=== PATIENT | male | born 1945 | race Caucasian/White ===

== ENCOUNTER → 2017-05-16 | Outpatient (CLI) | payer MEDICARE ==
[~2017-05-16] MED LIST: ASA PO; CARVEDILOL25 MG; SIMVASTATIN80 MG; WARFARIN SOD5 MG; Zestril,Prinivil5 MG
[2017-05-16 08:17] LABS: BASO % 0.4 % (0.0-1.0); EOS # 0.1 10*3/uL (0.0-0.4); EOS % 0.9 % (1.0-4.0); HEMATOCRIT 28.8 % (42.0-52.0); LYMPH # 1.7 10*3/uL (1.3-4.4); LYMPH % 24.5 % (27.0-41.0); MEAN CELL VOLUME 108.3 fl (80.0-94.0); MEAN CORPUSCULAR HGB 37.6 pg (27.0-31.0); MEAN CORPUSCULAR HGB CONC 34.7 g/dl (33.0-37.0); MEAN PLATELET VOLUME 10.2 fl (9.6-12.3); MONO # 0.8 10*3/uL (0.1-1.0); MONO % 11.5 % (3.0-9.0); NEUT # 4.3 10*3/uL (2.3-7.9); NEUT % 62.4 % (47.0-73.0); PLATELET COUNT AUTOMATED 189 10*3/uL (130-400); RED BLOOD COUNT 2.66 10*6/uL (4.50-5.90); RED CELL DISTRI WIDTH 13.9 % (0-14.5); WHITE BLOOD COUNT 6.8 10*3/uL (4.8-10.8)
[2017-05-16 08:46] LABS: ALBUMIN 3.8 gm/dl (3.1-4.5); BILIRUBIN, DIRECT 0.2 mg/dL (0.0-0.2); BILIRUBIN, TOTAL 0.7 mg/dl (0.2-1.0); BUN 23 mg/dl (7-24); CARBON DIOXIDE 25 mmol/L (21-32); CHLORIDE 104 mmol/L (98-107); CHOLESTEROL 140 mg/dL (<200); EST GLOM FILT AFRICAN AMERICAN > 60 ml/min; GLUCOSE 95 mg/dL (65-99); HDL CHOLESTEROL 70 mg/dl (40-60); LDL CHOLESTEROL 60 mg/dL (9-159); POTASSIUM 4.9 mmol/L (3.5-5.1); SGOT/AST 11 IU/L (3-35); SGPT/ALT 16 U/L (12-78); SODIUM 137 mmol/L (136-145); TOTAL PROTEIN 6.9 gm/dL (6.4-8.2); TRIGLYCERIDES 48 mg/dl (<150); VLDL CHOLESTEROL 10 mg/dL (6-40)
[2017-05-16 08:53] LABS: ALKALINE PHOSPHATASE 44 U/L (45-117); FREE T4 0.99 ng/dl (0.76-1.46); THYROID STIM HORMONE (HS) 0.935 uIU/ml (0.358-4.75)
[2017-05-16 09:01] LABS: HEMOGLOBIN A1c 5.1 % (4.8-5.6)
[2017-05-16 09:12] LABS: EOSINOPHIL # 0.1 10*3/uL (0-0.4); EOSINOPHILS 1 % (1-4); LYMPHOCYTE # 1.7 10*3/uL (1.3-4.4); MONOCYTE # 0.4 10*3/uL (0.1-1.0); NEUTROPHIL # 4.6 10*3/uL (2.3-7.9); NEUTROPHILS 68 % (47-73); PLATELET SUFFICIENCY NORMAL (NORMAL); TOTAL CELLS COUNTED 100 #CELLS
== END | disposition home or self-care (01) ==
LOC: LAB 07:37
PROVIDERS: Internal Medicine
DX: Z12.5 Encounter for screening for malignant neoplasm of prostate (principal); I12.9 Hypertensive chronic kidney disease with stage 1 through stage 4 chronic kidney disease, or unspecified chronic kidney disease; N18.2 Chronic kidney disease, stage 2 (mild); E55.9 Vitamin D deficiency, unspecified; D50.9 Iron deficiency anemia, unspecified; R73.02 Impaired glucose tolerance (oral); E87.5 Hyperkalemia; E78.4 Other hyperlipidemia; R35.1 Nocturia; R41.3 Other amnesia; Z79.1 Long term (current) use of non-steroidal anti-inflammatories (NSAID)

== ENCOUNTER → 2017-09-28 | Outpatient (CLI) | payer MEDICARE ==
[2017-09-28 07:53] LABS: BASO % 0.4 % (0.0-1.0); EOS # 0.1 10*3/uL (0.0-0.4); EOS % 1.2 % (1.0-4.0); HEMATOCRIT 33.3 % (42.0-52.0); HEMOGLOBIN 11.6 g/dl (14.0-18.0); LYMPH # 2.1 10*3/uL (1.3-4.4); LYMPH % 31.6 % (27.0-41.0); MEAN CELL VOLUME 105.4 fl (80.0-94.0); MEAN CORPUSCULAR HGB 36.7 pg (27.0-31.0); MEAN CORPUSCULAR HGB CONC 34.8 g/dl (33.0-37.0); MEAN PLATELET VOLUME 9.6 fl (9.6-12.3); MONO # 0.8 10*3/uL (0.1-1.0); MONO % 11.4 % (3.0-9.0); NEUT # 3.7 10*3/uL (2.3-7.9); NEUT % 55.1 % (47.0-73.0); NUCLEATED RED BLOOD CELL 0.3 % (0.0-0.0); PLATELET COUNT AUTOMATED 196 10*3/uL (130-400); RED BLOOD COUNT 3.16 10*6/uL (4.50-5.90); RED CELL DISTRI WIDTH 13.7 % (0-14.5); WHITE BLOOD COUNT 6.7 10*3/uL (4.8-10.8)
[2017-09-28 08:26] LABS: ALBUMIN 3.9 gm/dl (3.1-4.5); BUN 21 mg/dl (7-24); CHLORIDE 105 mmol/L (98-107); POTASSIUM 4.3 mmol/L (3.5-5.1); SODIUM 140 mmol/L (136-145)
[2017-09-28 08:31] LABS: ALKALINE PHOSPHATASE 56 U/L (45-117); BILIRUBIN, DIRECT 0.3 mg/dL (0.0-0.2); CHOLESTEROL 147 mg/dL (<200); CREATININE 1.31 mg/dL (0.70-1.30); HDL CHOLESTEROL 75 mg/dl (40-60); LDL CHOLESTEROL 60 mg/dL (9-159); SGOT/AST 15 IU/L (3-35); SGPT/ALT 20 U/L (12-78); TOTAL PROTEIN 7.2 gm/dL (6.4-8.2); TRIGLYCERIDES 58 mg/dl (<150); VLDL CHOLESTEROL 12 mg/dL (6-40)
[2017-09-28 09:59] LABS: VITAMIN D, 25-HYDROXY 60.2 ng/mL (30-100)
== END | disposition home or self-care (01) ==
LOC: LAB 07:32
PROVIDERS: Internal Medicine
DX: I12.9 Hypertensive chronic kidney disease with stage 1 through stage 4 chronic kidney disease, or unspecified chronic kidney disease (principal); N18.3 Chronic kidney disease, stage 3 (moderate); R73.02 Impaired glucose tolerance (oral); E78.4 Other hyperlipidemia; M10.9 Gout, unspecified; D50.9 Iron deficiency anemia, unspecified; E55.9 Vitamin D deficiency, unspecified

== ENCOUNTER → 2018-04-04 | Outpatient (CLI) | payer MEDICARE ==
[2018-04-04 09:25] LABS: HEMATOCRIT 30.8 % (42.0-52.0); HEMOGLOBIN 10.4 g/dl (14.0-18.0); MEAN CELL VOLUME 109.2 fl (80.0-94.0); MEAN CORPUSCULAR HGB 36.9 pg (27.0-31.0); MEAN CORPUSCULAR HGB CONC 33.8 g/dl (33.0-37.0); MEAN PLATELET VOLUME 10.4 fl (9.6-12.3); NUCLEATED RED BLOOD CELL 0.3 % (0.0-0.0); PLATELET COUNT AUTOMATED 194 10*3/uL (130-400); RED BLOOD COUNT 2.82 10*6/uL (4.50-5.90); RED CELL DISTRI WIDTH 13.9 % (0-14.5); WHITE BLOOD COUNT 6.1 10*3/uL (4.8-10.8)
[2018-04-04 09:41] LABS: ALKALINE PHOSPHATASE 49 U/L (45-117); BILIRUBIN, DIRECT 0.2 mg/dL (0.0-0.2); BUN 24 mg/dl (7-24); CHLORIDE 107 mmol/L (98-107); CHOLESTEROL 151 mg/dL (<200); HDL CHOLESTEROL 73 mg/dl (40-60); LDL CHOLESTEROL 70 mg/dL (9-159); POTASSIUM 5.2 mmol/L (3.5-5.1); SGOT/AST 12 IU/L (3-35); SGPT/ALT 21 U/L (12-78); SODIUM 139 mmol/L (136-145); TRIGLYCERIDES 39 mg/dl (<150); VLDL CHOLESTEROL 8 mg/dL (6-40)
[2018-04-04 11:26] LABS: PLATELET SUFFICIENCY NORMAL (NORMAL); TOTAL CELLS COUNTED 100 #CELLS
== END | disposition home or self-care (01) ==
LOC: LAB 08:34
PROVIDERS: Internal Medicine Cardiovascular Disease
DX: I12.9 Hypertensive chronic kidney disease with stage 1 through stage 4 chronic kidney disease, or unspecified chronic kidney disease (principal); N18.2 Chronic kidney disease, stage 2 (mild); I25.10 Atherosclerotic heart disease of native coronary artery without angina pectoris; D50.9 Iron deficiency anemia, unspecified; E55.9 Vitamin D deficiency, unspecified; R73.02 Impaired glucose tolerance (oral)

== ENCOUNTER 2019-09-15 18:03 | Inpatient (IN) | payer MEDICARE, OTHER ==
[~2019-09-15] VITALS: Ht 160 cm; Wt 60.8 kg
[2019-09-15 18:17] VITALS: BP 137/79
[2019-09-15 18:38] LABS: HEMATOCRIT 27.2 % (42.0-52.0); HEMOGLOBIN 9.2 g/dl (14.0-18.0); MEAN CELL VOLUME 117.2 fl (80.0-94.0); MEAN CORPUSCULAR HGB 39.7 pg (27.0-31.0); MEAN CORPUSCULAR HGB CONC 33.8 g/dl (33.0-37.0); MEAN PLATELET VOLUME 9.7 fl (9.6-12.3); PLATELET COUNT AUTOMATED 159 10*3/uL (130-400); RED BLOOD COUNT 2.32 10*6/uL (4.50-5.90); RED CELL DISTRI WIDTH 14.6 % (0-14.5); WHITE BLOOD COUNT 6.3 10*3/uL (4.8-10.8)
[2019-09-15 18:49] LABS: ACT PARTIAL THROMBO TIME 23.8 SECONDS (20.0-32.1)
[2019-09-15 18:55] LABS: ALBUMIN 3.6 gm/dl (3.1-4.5); ALKALINE PHOSPHATASE 85 U/L (45-117); BUN 20 mg/dl (7-24); CHLORIDE 104 mmol/L (98-107); CREATININE 1.28 mg/dL (0.70-1.30); LIPASE 143 U/L (73-393); POTASSIUM 4.2 mmol/L (3.5-5.1); SGOT/AST 13 IU/L (3-35); SGPT/ALT 27 U/L (12-78); SODIUM 135 mmol/L (136-145); TOTAL PROTEIN 6.7 gm/dL (6.4-8.2)
[2019-09-15 19:07] LABS: TROPONIN I < 0.015 ng/ml (<0.045)
--- NOTE | 2019-09-15 19:07 | NUR ---
[facility]
--- NOTE | 2019-09-15 19:14 | NUR ---
REPORT TO RADHA MATOS.
[2019-09-15 19:20] LABS: BILIRUBIN NEGATIVE (NEGATIVE); BLOOD NEGATIVE (NEGATIVE); CLARITY CLEAR (CLEAR); COLOR YELLOW (YELLOW); GLUCOSE NEGATIVE (NEGATIVE); KETONE NEGATIVE (NEGATIVE); LEUKO ESTERASE NEGATIVE (NEGATIVE); NITRITE NEGATIVE (NEGATIVE); SPECIFIC GRAVITY 1.015 (1.005-1.030); UROBILINOGEN 0.2 E.U./dl (0.2-1.0)
[2019-09-15 19:28] LABS: PLATELET SUFFICIENCY NORMAL (NORMAL); TOTAL CELLS COUNTED 100 #CELLS
[2019-09-15 19:29] LABS: BURR CELLS FEW
[2019-09-15 19:31] LABS: RBC 0-2 rbc/hpf (0-2)
[2019-09-15 19:35] VITALS: BP 133/74
[2019-09-15 20:50] VITALS: BP 139/80
--- NOTE | 2019-09-15 20:50 | NUR ---
A 74, admitted to , under the services of ART Johnston DO with a diagnosis of SYNCOPE AND COLLAPSE. Chief complaint is FALL. Patient arrived via bed from ER. Monitor applied. Initial assessment completed. Vital signs taken and recorded. ART JOHNSTON DO notified of admission to the unit. Orders received. See assessment for past medical history, medications and allergies. Patient and/or family oriented to unit. [address] visitation policy reviewed. Clothing/patient valuable form completed. SHARA DALE
--- NOTE | 2019-09-15 22:15 | NUR ---
DR. ASHRAF NOTIFIED OF BRINGING MED LIST IN TOMORROW. ALSO NOTIFIED OF NEED FOR WOUND ORDERS.
--- NOTE | 2019-09-15 22:39 | NUR ---
PT REFUSING AQUAPHOR AT THIS TIME.
[2019-09-16] VITALS: BP 132/68
--- NOTE | 2019-09-16 02:17 | NUR ---
Patient resting quietly with no c/o discomfort. Respirations easy and regular. Vital signs stable. No overt distress. JULIANO MANN
[2019-09-16 06:27] LABS: BUN 19 mg/dl (7-24); CHLORIDE 106 mmol/L (98-107); CHOLESTEROL 126 mg/dL (<200); CREATININE 1.32 mg/dL (0.70-1.30); FREE T4 1.07 ng/dl (0.76-1.46); HDL CHOLESTEROL 68 mg/dl (40-60); LDL CHOLESTEROL 47 mg/dL (9-159); PHOSPHOROUS 3.8 mg/dL (2.5-4.9); SODIUM 142 mmol/L (136-145); TRIGLYCERIDES 56 mg/dl (<150); VLDL CHOLESTEROL 11 mg/dL (6-40)
[2019-09-16 06:31] LABS: HEMATOCRIT 27.3 % (42.0-52.0); HEMOGLOBIN 9.4 g/dl (14.0-18.0); MEAN CORPUSCULAR HGB 39.5 pg (27.0-31.0); MEAN CORPUSCULAR HGB CONC 34.4 g/dl (33.0-37.0); MEAN PLATELET VOLUME 10.3 fl (9.6-12.3); PLATELET COUNT AUTOMATED 179 10*3/uL (130-400); RED BLOOD COUNT 2.38 10*6/uL (4.50-5.90); RED CELL DISTRI WIDTH 14.3 % (0-14.5); WHITE BLOOD COUNT 6.3 10*3/uL (4.8-10.8)
[2019-09-16 06:32] LABS: MEAN CELL VOLUME 114.7 fl (80.0-94.0)
[2019-09-16 06:52] LABS: BASOPHILS 1 % (0-1); TOTAL CELLS COUNTED 100 #CELLS
[2019-09-16 06:53] LABS: PLATELET SUFFICIENCY NORMAL (NORMAL)
--- NOTE | 2019-09-16 07:07 | NUR ---
ISMAEL ORELLANA [id number] Please refer to the physician's history and physical for past medical history, comorbid conditions, and allergies. Diagnosis: SYNCOPE AND COLLAPSE Mckay Score: 19,LOW OR NO RISK WOUND DESCRIPTIONS: INTACT SCABS NOTED TO PATIENT'S NOSE, CHIN AND LIP. NO DRAINAGE NOTED AT TIME OF ASSESSMENT. ERRYTHEMA NOTED TO PERIWOUND TO NOSE, CHIN AND LIP. EDEMA NOTED TO PATIENT'S LIP. PATIENT STATES THAT HE FELL 09/15 AROUND 1800. PATIENT AGREED TO AQUAPHOR TO NOSE, CHIN AND LIP. Surface the patient is resting on: Position Pro SKIN PREVENTION RECOMMENDATION: 1. Pressure redistribution support surface as appropriate 2. Elevate heels 3. Remove boots/TEDS every shift and reapply 4. Head of bed 30 degrees as tolerated 5. Assess nutrition and hydration 6. Manage moisture 7. Avoid the use of containment devices while in bed 8. Use absorptive products on surfaces limit layers of linens on bed 9. Turn and reposition every 1-2 hours in bed and every 1 hour in chair as tolerated 10. Weight shifts every 15 minutes while up in chair 11. Offloading with pillows or device to keep heels elevated off bed 12. Monitor skin at least every shift 13. Inspect under medical devices twice a day WOUND TREATMENT RECOMMENDATIONS: AQUAPHOR TO NOSE, CHIN AND LIP DAILY AND PRN.
[2019-09-16 08:00] VITALS: BP 127/77; BP 130/62
--- NOTE | 2019-09-16 08:30 | NUR ---
PATIENT SITTING UP IN BED, EATING BREAKFAST. NO DISTRESS NOTED. RESPIRATIONS EASY, REGULAR ON RA. DENIES ANY SOB. DENIES ANY PAIN/DISCOMFORT AT THIS TIME. WILL CONTINUE TO MONITOR. VSS.
--- NOTE | 2019-09-16 08:55 | NUR ---
Mckenzie JANE notified of wound care recommendations.
--- NOTE | 2019-09-16 09:14 | NUR ---
'S OFFICE CALLED AT THIS TIME REGARDING CONSULT.
--- NOTE | 2019-09-16 09:17 | NUR ---
[employer] CALLED AT THIS TIME REGARDING PACER INTERROGATION.
--- NOTE | 2019-09-16 09:33 | NUR ---
REP FROM [employer] CALLED AND WILL BE IN LATER ON TO SEE THE PATIENT.
--- NOTE | 2019-09-16 10:07 | NUR ---
Nutritional Support Services Note: Discussing diet with pts . Diet copy given. Wounds noted to face secondary to fall. Encouraged increased calorie and protein to promote healing. Discussed foods to avoid. Encouraged compliance and follow up if needed. Lupe Perry Rdn Ld
--- NOTE | 2019-09-16 10:23 | NUR ---
PHYSICAL THERAPY Charoal completed pt low level of complexity full report to follow recomend home with /HH as long as cont to progress well with ambulation. PT to work on transfser/ambulation/safety monitor for c/o dizziness with activity. Tg Pena PT
[2019-09-16] MEDS ORDERED: ALLOPURINOL100 MG PO (10:32)
[2019-09-16] MEDS ORDERED: FUROSEMIDE40 MG PO (10:32)
--- NOTE | 2019-09-16 10:32 | NUR ---
MED REC UPDATED PER POLICY.
--- NOTE | 2019-09-16 11:18 | NUR ---
Patient not available for Occupational Therapy evaluation as he is with his doctor. Edwige Marquez OTR/l
--- NOTE | 2019-09-16 11:27 | NUR ---
IN TO SEE PATIENT REGARDING CONSULT.
--- NOTE | 2019-09-16 11:35 | NUR ---
Occupational Therapy evaluation completed on 4 with full eval to follow. Precautions include "passing out" at home and hospitalized with falls x2 in 2 months, low complexity level 53703 , IV UE, pacemaker. Recommend return home w/ and no further OT at this time. Thank you. Edwige Marquez OTR/l
--- NOTE | 2019-09-16 11:35 | NUR ---
Occupational Therapy evaluation completed on 4 with full eval to follow. Precautions include pacemaker,h/o falls w/ syncope, low complexity level 61838. Recommend no further OT at this time and return home w/ upon d/c. Thank you. Preeti Marquez OTR/l
[2019-09-16 12:00] VITALS: BP 118/44
--- NOTE | 2019-09-16 12:41 | NUR ---
Guest Relations Receptionist in to talk to patient. Patient states lives at HOME with . There are NO steps in the home. Physician: GINA CONNOLLY Pharmacy: [facility] services: NONE Patient's level of ADLs: INDEPENDENT Patient has working utilities: YES DME: NONE Follow-up physician's appointment after d/c: WILL BE MADE BY HOSPITALIST NURSE DIRECTOR ON DISCHARGE Does patient want to access PORTAL?: NO Discharge plan PT LIVES AT HOME WITH HIS AND IS INDEPENDENT IN CARE. IS AT BEDSIDE AND THE PLAN IS FOR PT TO RETURN HOME WHEN MEDICALLY STABLE WITH NO NEEDS. WILL CONTINUE TO FOLLOW. WILL HAVE A RIDE HOME ON DISCHARGE.. OLLIE FLOWER
--- NOTE | 2019-09-16 13:15 | NUR ---
PHYSICAL THERAPY Patient seen this pm 1;1 for therapy visit and was resting supine in bed upon therapist arrival. Patient identified by name / and was very pleasant this afternoon, voicing no new c/o's at this time. Patient was Supervision for all therapy activites this session with resting HR 73 bpm. Patient ambulates > 250' x 1, demonstrating smooth, even stride with good B arm swing and no LOB. Patient completed several standing balance ex including eyes open / closed, backward gait without LOB and tolerated 8-10 seconds single leg stance without c/o. Patient returned to supine in bed and remained with call light, tray table and telephone. Will continue per POC as tolerated, total treatment time 18 minutes. Gómez Tejada, BROODMARE FOREMAN
--- NOTE | 2019-09-16 14:23 | NUR ---
PATIENT TAKEN OFF FLOOR FOR SCHEDULED U/S.
--- NOTE | 2019-09-16 15:53 | NUR ---
THIS NURSE UNABLE TO REACH RECYCLING PROGRAM MANAGER JOURNAL ENTRY AUDIT CLERK. CALLED REGARDING CAROTID DOPPLER RESULTS. INNA STONE NOTIFIED.
--- NOTE | 2019-09-16 15:54 | NUR ---
CALLED AND UPDATED ON PACER INTERROGATION. NEW ORDERS RECEIVED.
[2019-09-16 16:00] VITALS: BP 138/72
--- NOTE | 2019-09-16 17:10 | NUR ---
FAMILY AT BEDSIDE AND UPDATED ON PLAN OF CARE. PT RESTING. NO DISTRESS.
--- NOTE | 2019-09-16 17:10 | NUR ---
PT RESTING QUIETLY IN BED. NO DISTRESS NOTED. FAMILY AT BEDSIDE AND UPDATED ON PLAN OF CARE. WILL CONTINUE TO MONITOR. CALL LIGHT WITHIN REACH.
--- NOTE | 2019-09-16 19:45 | NUR ---
PATIENT IS RESTING IN BED WITH EASY AND REGULAR RESPERS ON ROOM AIR. ASSESSMENT IS COMPLETE WITH NO S/S OF DISTRESS NOTED AT THIS TIME. BED IS LOW, LOCKED, ALARMED, AND CALL LIGHT IS WITHIN REACH. WILL CONTINUE TO MONITOR, SEE SHIFT ASSESSMENT.
[2019-09-16 20:00] VITALS: BP 117/63
[2019-09-17] VITALS: BP 113/54
--- NOTE | 2019-09-17 00:30 | NUR ---
PATIENT SLEEPING WITH EASY AND REGULAR RESPERS ON ROOM AIR. CALL LIGHT IS WITHIN REACH.
--- NOTE | 2019-09-17 04:14 | NUR ---
Recommend follow up for wound care in outpatient setting patient refused at this time.
--- NOTE | 2019-09-17 05:32 | NUR ---
24 HR. CHART CHECK COMPLETE.
[2019-09-17 08:00] VITALS: BP 114/55
--- NOTE | 2019-09-17 10:45 | NUR ---
PHYSICAL THERAPY Patient was out of his room for a medical procedure this am when approached multiple times and is still unavailable at this time. Will continue per POC as able. Gómez Tejada, REPLANTING MACHINE CREWMAN
--- NOTE | 2019-09-17 10:52 | NUR ---
PT HAVING STRESS TEST TODAY. WILL RETURN HOME WITH WHEN MEDICALLY STABLE. WILL CONTINUE TO FOLLOW.
--- NOTE | 2019-09-17 10:55 | NUR ---
INFORMED CONSENT OBTAINED FOR WALKING LEXISCAN NUCLEAR STRESS TEST WITH DR. OSBORN. RESING EKG NSR WITH A SUPINE HR OF 79 WITH BP OF 110/54 AND HR OF 65 WITH BP OF 110/54 IN STANDING POSITION. PT COMPLETED A 2:00 WALKING LEXISCAN PROTOCOL WITH WALKING ON TREADMILL AT 1.7 MPH AND NO GRADE. RECEIVED LEXISCAN 0.4 MG IV OVER 10 SECONDS WHILE WALKING. HAD NO CHEST PAIN OR ANY EKG CHANGES. DID C/O FEELING OF SHORTNESS OF BREATH THAT WAS RELIEVED IN RECOVERY. HAD A PEAK HR OF 103 WITH BP OF 96/30. LAST RECOVERY HR OF 94 WITH BP OF 108/48. AWAITING SCANNING IN STABLE CONDITION.
--- NOTE | 2019-09-17 11:03 | NUR ---
PATIENT OFF FLOOR FOR SCHEDULED STRESS TEST.
[2019-09-17] MEDS ORDERED: ALDACTONE25 MG PO (11:37)
[2019-09-17] MEDS ORDERED: ATORVASTATIN CA80 M1 PO (11:37)
[2019-09-17 12:00] VITALS: BP 123/59
--- NOTE | 2019-09-17 14:41 | NUR ---
PHYSICAL THERAPY CO-SIGN I approve of the Physical Therapy notes written above Tg Pena PT
--- NOTE | 2019-09-17 15:00 | NUR ---
PT REFUSED DISCHARGE PHOTOS.
--- NOTE | 2019-09-17 15:00 | NUR ---
Discharge instructions reviewed with patient/family. Patient receptive and verbalizes understanding. Follow-up care arranged. Written instructions given to patient/family. ARELY MCCLURE.
== END 2019-09-17 15:00 | disposition home or self-care (01) | DRG 312 ==
LOC: ED 18:03 → 4E 19:27 → EDHOLD 19:27 → 4E 20:17
PROVIDERS: Emergency Medicine; Internal Medicine; ADMIT Internal Medicine
PROC: 4A02XM4 Measurement of Cardiac Total Activity, External Approach (ICD-10-PCS; principal; 2019-09-17)
PROC: 3E073KZ Introduction of Other Diagnostic Substance into Coronary Artery, Percutaneous Approach (ICD-10-PCS; principal; 2019-09-17)
DX: R55 Syncope and collapse (principal); I50.22 Chronic systolic (congestive) heart failure; I13.0 Hypertensive heart and chronic kidney disease with heart failure and stage 1 through stage 4 chronic kidney disease, or unspecified chronic kidney disease; I65.22 Occlusion and stenosis of left carotid artery; S00.81XA Abrasion of other part of head, initial encounter; D53.9 Nutritional anemia, unspecified; I10 Essential (primary) hypertension; I25.10 Atherosclerotic heart disease of native coronary artery without angina pectoris; N18.3 Chronic kidney disease, stage 3 (moderate); I25.5 Ischemic cardiomyopathy; I34.0 Nonrheumatic mitral (valve) insufficiency; E78.5 Hyperlipidemia, unspecified; E78.2 Mixed hyperlipidemia; M10.9 Gout, unspecified; Z79.82 Long term (current) use of aspirin; Z95.0 Presence of cardiac pacemaker; Z79.899 Other long term (current) drug therapy; Z80.0 Family history of malignant neoplasm of digestive organs; Z82.49 Family history of ischemic heart disease and other diseases of the circulatory system

== ENCOUNTER → 2022-10-12 | Outpatient (CLI) | payer MEDICARE, OTHER ==
[~2022-10-12] MED LIST changes: +ALDACTONE25 MG PO; +ALLOPURINOL100 MG PO; +ATORVASTATIN CA80 M1 PO; +FUROSEMIDE40 MG PO
[2022-10-12 14:27] LABS: HEMATOCRIT 33.6 % (42.0-52.0); MEAN CELL VOLUME 117.1 fl (80.0-94.0); MEAN CORPUSCULAR HGB 39.7 pg (27.0-31.0); MEAN CORPUSCULAR HGB CONC 33.9 g/dl (33.0-37.0); MEAN PLATELET VOLUME 9.2 fl (9.6-12.3); PLATELET COUNT AUTOMATED 182 10*3/uL (130-400); RED BLOOD COUNT 2.87 10*6/uL (4.50-5.90); RED CELL DISTRI WIDTH 16.5 % (0-14.5); WHITE BLOOD COUNT 4.5 10*3/uL (4.8-10.8)
[2022-10-12 14:36] LABS: INTERNATIONAL NORM RATIO 1.1 (2.0-3.5)
[2022-10-12 14:39] LABS: MANUAL DIFF REFLEX YES
[2022-10-12 14:44] LABS: POTASSIUM 4.7 mmol/L (3.4-5.1)
[2022-10-12 16:11] LABS: ATYPICAL LYMPHS 1 % (0-0); BASOPHILS 2 % (0-1); PLATELET SUFFICIENCY NORMAL (NORMAL); TOTAL CELLS COUNTED 100 #CELLS
[2022-10-12 16:12] LABS: OVALOCYTES FEW
[2022-10-12 16:13] LABS: ACANTHOCYTES FEW
== END | disposition home or self-care (01) ==
LOC: LAB 14:06
PROVIDERS: ATTEND Internal Medicine Interventional Cardiology
DX: I11.0 Hypertensive heart disease with heart failure (principal); I50.23 Acute on chronic systolic (congestive) heart failure; I25.5 Ischemic cardiomyopathy; I25.10 Atherosclerotic heart disease of native coronary artery without angina pectoris; I34.0 Nonrheumatic mitral (valve) insufficiency; E78.2 Mixed hyperlipidemia

== ENCOUNTER 2024-10-12 16:25 | Emergency (ER) | payer MEDICARE, OTHER ==
[~2024-10-12] VITALS: Ht 160 cm; Wt 54.0 kg
[2024-10-12] MEDS ORDERED: LISINOPRIL10 M1 PO (16:43)
[2024-10-12] MEDS ORDERED: METOPROLOL SUC100 M1 PO (16:43)
[2024-10-12] MEDS ORDERED: Ondansetron Hydrochloride 4 MG/2 ML VIAL IV ONE (16:55)
[2024-10-12] MEDS ORDERED: SODIUM CHLORIDE 0.9% 1,000 ML IV ONE (16:55)
[2024-10-12 17:27] LABS: HEMATOCRIT 35.3 % (42.0-52.0); MEAN CELL VOLUME 122.1 fl (80.0-94.0); MEAN CORPUSCULAR HGB 39.8 pg (27.0-31.0); MEAN CORPUSCULAR HGB CONC 32.6 g/dl (33.0-37.0); MEAN PLATELET VOLUME 9.7 fl (9.6-12.3); PLATELET COUNT AUTOMATED 217 10*3/uL (130-400); RED BLOOD COUNT 2.89 10*6/uL (4.50-5.90); RED CELL DISTRI WIDTH 19.4 % (0-14.5); WHITE BLOOD COUNT 13.7 10*3/uL (4.8-10.8)
[2024-10-12 17:48] LABS: MANUAL DIFF REFLEX YES
[2024-10-12 17:51] LABS: POTASSIUM 4.5 mmol/L (3.4-5.1); TOTAL CELLS COUNTED 100 #CELLS; TOTAL PROTEIN 6.9 gm/dL (6.0-8.0)
[2024-10-12 17:52] LABS: PLATELET SUFFICIENCY NORMAL (NORMAL)
[2024-10-12 20:00] VITALS: BP 140/73
[2024-10-12] MEDS ORDERED: Ondansetron4 MG PO (20:30)
== END 2024-10-12 20:44 | disposition home or self-care (01) ==
LOC: ED 16:25
PROVIDERS: Physician Assistant Medical
DX: K52.9 Noninfective gastroenteritis and colitis, unspecified (principal); Z20.822 Contact with and (suspected) exposure to COVID-19; I11.0 Hypertensive heart disease with heart failure; I25.10 Atherosclerotic heart disease of native coronary artery without angina pectoris; I25.2 Old myocardial infarction; I50.9 Heart failure, unspecified; E78.5 Hyperlipidemia, unspecified; D63.1 Anemia in chronic kidney disease; M10.9 Gout, unspecified; Z95.5 Presence of coronary angioplasty implant and graft

== ENCOUNTER 2025-01-19 05:27 | Emergency (ER) | payer MEDICARE, OTHER ==
[~2025-01-19] VITALS: Ht 167.6 cm; Wt 63.5 kg
[~2025-01-19 05:27] MED LIST changes: +LISINOPRIL10 M1 PO; +METOPROLOL SUC100 M1 PO; +Ondansetron4 MG PO
[2025-01-19 05:34] VITALS: BP 142/51
[2025-01-19] MEDS ORDERED: Ondansetron Hydrochloride 4 MG/2 ML VIAL IV ONE (05:40)
[2025-01-19] MEDS ORDERED: SODIUM CHLORIDE 0.9% 1,000 ML IV ONE (05:40)
[2025-01-19] MEDS ORDERED: MORPHINE Sulfate 2 MG/ML SYR IV ONE (05:40)
[2025-01-19] MEDS ORDERED: IOHEXOL 300 MG/ML 100 ML VIAL IV ONE (05:50)
[2025-01-19 06:13] LABS: HEMATOCRIT 41.3 % (42.0-52.0); MEAN CELL VOLUME 117.3 fl (80.0-94.0); MEAN CORPUSCULAR HGB 39.5 pg (27.0-31.0); MEAN CORPUSCULAR HGB CONC 33.7 g/dl (33.0-37.0); MEAN PLATELET VOLUME 10.1 fl (9.6-12.3); NUCLEATED RED BLOOD CELL 0.1 10*3/uL (0.0-0.0); NUCLEATED RED BLOOD CELL 0.6 % (0.0-0.0); PLATELET COUNT AUTOMATED 255 10*3/uL (130-400); RED BLOOD COUNT 3.52 10*6/uL (4.50-5.90); RED CELL DISTRI WIDTH 18.6 % (0-14.5); WHITE BLOOD COUNT 11.4 10*3/uL (4.8-10.8)
[2025-01-19 06:23] LABS: MANUAL DIFF REFLEX YES
[2025-01-19 06:39] LABS: ALKALINE PHOSPHATASE 353 U/L (46-116); BUN 20 mg/dl (9-23); CHLORIDE 103 mmol/L (98-107); POTASSIUM 4.6 mmol/L (3.4-5.1); SGPT/ALT 355 U/L (5-49); TOTAL PROTEIN 6.8 gm/dL (6.0-8.0)
[2025-01-19 06:45] LABS: ACANTHOCYTES FEW; BURR CELLS FEW; PLATELET SUFFICIENCY NORMAL (NORMAL); POLYCHROMASIA SLIGHT; SCHISTOCYTES FEW; TOTAL CELLS COUNTED 100 #CELLS
[2025-01-19 06:51] LABS: LIPASE > 3500 U/L (12-53)
[2025-01-19] MEDS ORDERED: HYDROmorphone Hydrochloride 1 MG/ML SYR IV ONE (08:10)
[2025-01-19 08:56] LABS: BILIRUBIN 2+ (Negative); BLOOD Negative (Negative); CLARITY Clear (Clear); COLOR Dark Yellow (Yellow); GLUCOSE Negative (Negative); KETONE Negative (Negative); LEUKO ESTERASE Negative (Negative); NITRITE Negative (Negative); SPECIFIC GRAVITY >= 1.030 (1.001-1.030)
[2025-01-19 09:04] LABS: BACTERIA TRACE
[2025-01-19 09:05] LABS: CALCIUM OXALATE CRYSTALS Trace
[2025-01-19] MEDS ORDERED: Piperacillin Sodium/Tazobact 50 ML IV ONE (09:25)
== END 2025-01-19 11:10 | disposition short-term general hospital (02) ==
LOC: ED 05:27
PROVIDERS: Internal Medicine
DX: K80.50 Calculus of bile duct without cholangitis or cholecystitis without obstruction (principal); K85.90 Acute pancreatitis without necrosis or infection, unspecified; R11.2 Nausea with vomiting, unspecified; Z79.899 Other long term (current) drug therapy; Z95.0 Presence of cardiac pacemaker